=== PATIENT | female | born 1985 | race Caucasian/White ===

== ENCOUNTER 2016-12-22 19:57 | Emergency (ER) | payer OTHER ==
--- NOTE | 2016-12-22 20:49 | RAD ---
HISTORY: Headache, dizziness, nausea COMPARISONS: March 21, 2016 TECHNIQUE: Multiple contiguous axial CT scans were obtained of the head without intravenous contrast. FINDINGS: HEMORRHAGE/INFARCT: There is no hemorrhage or acute infarct. MASSES/SHIFT: There is no mass or shift. EXTRA-AXIAL SPACES: There are no extra-axial fluid collections. SULCI AND VENTRICLES: The sulci and ventricles are normal in size and position for the patient's stated age. CEREBRUM: There are no focal parenchymal abnormalities. BRAINSTEM: There are no focal parenchymal abnormalities. CEREBELLUM: There are no focal parenchymal abnormalities. VESSELS: The vessels are grossly normal. PARANASAL SINUSES: The paranasal sinuses are clear. ORBITS: The orbits are unremarkable. BONES AND SOFT TISSUE: No bone or soft tissue abnormalities are noted. OTHER: None IMPRESSION: NO ACUTE INTRACRANIAL PATHOLOGY.
--- NOTE | 2016-12-22 21:04 | ED ---
Nash Conrad Claudia, scribed for Dick Arias MD on 12/22/16 at 2020 . Headache - HPI Summary HPI Summary: 31 year old female presents to the ED with SKY and neck pain. Pt denies any cough , ear ache, vision changes, diplopia congestion but admits to 1 bout of fever earlier tonight of 101.3F. Pt notes onset of Sx today. She describes the SKY as a left sided SKY pressure with pressure behind her left eye. She also notes pain in the back of her neck as she rotates her head to the right. Pt took 750mg of Naproxen at 1600. Pt called Dr. Yoo PCP office and talked to Dr. López whom recommended she come to the ED. PMHx of Fibromyalgia - History Of Current Complaint Chief Complaint: EDGeneral Stated Complaint: HEADACHE,NAUSEA,NECK PAIN Time Seen by Provider: 12/22/16 20:11 Hx Obtained From: Patient Hx Last Menstrual Period: 2 wks ago Onset/Duration: Sudden Onset, Started days ago - today Timing: Constant Character: Pressure Location of Headache: Other: - left sided Associated Signs And Symptoms: Neck Pain - with rotation - Allergies/Home Medications Allergies/Adverse Reactions: Allergies Allergy/AdvReac Type Severity Reaction Status Date / Time Adhesive Tape Allergy BURNED SKIN Verified 05/05/16 20:54 PMH/Surg Hx/FS Hx/Imm Hx Previously Healthy: Yes Endocrine/Hematology History: Reports: Hx Thyroid Disease - HASHIMOTOS Denies: Hx Diabetes Cardiovascular History: Denies: Hx Hypertension, Hx Pacemaker/ICD GI History: Reports: Other GI Disorders - HX OF CONSTIPATION History: Denies: Hx Renal Disease Sensory History: Denies: Hx Contacts or Glasses, Hx Hearing Aid Opthamlomology History: Denies: Hx Contacts or Glasses Neurological History: Reports: Hx Headaches Denies: Other Neuro Impairments/Disorders Psychiatric History: Reports: Hx Anxiety, Hx Panic Disorder - ANXIETY - Surgical History Surgery Procedure, Year, and Place: LUMPECTOMY LEFT BREAST 02/05/16. LEEP 12/01 Infectious Disease History: No Infectious Disease History: Denies: Traveled Outside the [place] in Last 30 Days - Family History Known Family History: Positive: None Negative: Cardiac Disease, Blood Disorder Family History: R & n/C - Social History Occupation: Employed Part-time Lives: With Family Alcohol Use: None Alcohol Amount: 1 BOTTLE WINE/WEEK Hx Substance Use: No Substance Use Type: Reports: None Hx Tobacco Use: No Smoking Status (MU): Never Smoked Tobacco Review of Systems Negative: Fever, Chills Eyes: Negative Negative: Diplopia ENT: Negative Negative: Ear Ache Cardiovascular: Negative Respiratory: Negative Negative: Cough Gastrointestinal: Negative Genitourinary: Negative Positive: Other - pain on left side of neck whenpt moves it Skin: Negative Positive: Headache - pressure, left sided Psychological: Normal All Other Systems Reviewed And Are Negative: Yes Physical Exam Triage Information Reviewed: Yes Vital Signs On Initial Exam: Initial Vitals Temp Pulse Resp BP Pulse Ox 98.1 F 103 16 127/84 100 12/22/16 19:59 12/22/16 19:59 12/22/16 19:59 12/22/16 19:59 12/22/16 19:59 Vital Signs Reviewed: Yes Appearance: Positive: Well-Appearing, No Pain Distress - no acute distress, non toxic Skin: Positive: Warm, Skin Color Reflects Adequate Perfusion, Dry Head/Face: Positive: Normal Head/Face Inspection Eyes: Positive: Normal ENT: Positive: Other - post pharyngeal streaking. Negative: Tonsillar swelling - no tonsillar hypertrophy, Tonsillar exudate Neck: Positive: Supple, Nontender, No Lymphadenopathy, Other: - reproducible right trapezius pain Respiratory/Lung Sounds: Positive: Clear to Auscultation, Breath Sounds Present Cardiovascular: Positive: RRR Abdomen Description: Positive: Nontender, Soft Musculoskeletal: Positive: Normal, Strength/ROM Intact Neurological: Positive: Normal, Sensory/Motor Intact Psychiatric: Positive: Normal, Affect/Mood Appropriate Diagnostics - Vital Signs Vital Signs Temp Pulse Resp BP Pulse Ox 12/22/16 19:59 98.1 F 103 16 127/84 100 - Laboratory Lab Statement: Any lab studies that have been ordered have been reviewed, and results considered in the medical decision making process. - CT BRAIN CT CT Interpretation: No Acute Changes - NO ACUTE INTRACRANIAL PATHOLOGY CT Interpretation Completed By: Radiologist Re-Evaluation - Re-Evaluation 1 Re-Evaluation Time: 20:58 Change: Improved Comment: CT BRAIN results were discussed with the pt. Pt is agreeable with plan to be d/c home and follow-up appt with neurologist/PCP. Headache Course/Dx - Diagnoses Differential Diagnosis/HQI/PQRI: Migraine, Sinus Headache, Subarachnoid Hemorrhage, Tension Headache, Other - Primary concern for muscular headache. I cannot account for the fever, but she is without infectious complaints, signs of meningoencephalitis or ICH. Not immunocompromised and with soft supple neck. Neurology FU. Provider Diagnoses: Headache - Physician Notifications Discussed Care Of Patient With: Discussed care of pt with Dr. Diaz. Time Discussed With Above Provider: 20:33 Discharge - Discharge Plan Condition: Stable Disposition: HOME Patient Education Materials: Neck Pain (ED) Referrals: Heriberto Yoo MD [Primary Care Provider] - As Soon As Possible Carmen Watts MD [Medical Doctor] - As Soon As Possible The documentation as recorded by the Nash bae Claudia accurately reflects the service I personally performed and the decisions made by me, Dick Arias MD.
[2016-12-22 21:30] VITALS: BP 122/84
== END 2016-12-22 21:32 | disposition home or self-care (01) ==
LOC: ED 19:57
DX: R51 Headache (principal); M54.2 Cervicalgia
CPT/HCPCS: 70450; 99283

== ENCOUNTER 2017-04-27 19:29 | Emergency (ER) | payer SELFPAY ==
--- NOTE | 2017-04-27 20:58 | RAD ---
HISTORY: Right foot swelling COMPARISONS: July 24, 2006 VIEWS: 3, Frontal, lateral, and oblique views of the right foot FINDINGS: BONE DENSITY: Normal. BONES: There is no displaced fracture. JOINTS: There is no arthropathy. ALIGNMENT: There is no dislocation. SOFT TISSUES: Unremarkable. OTHER FINDINGS: None. IMPRESSION: NO ACUTE OSSEOUS INJURY. IF SYMPTOMS PERSIST, RECOMMEND REPEAT IMAGING.
--- NOTE | 2017-04-27 21:43 | ED ---
Lower Extremity - HPI Summary HPI Summary: 32F presents with right ankle swelling and pain into the calf today. She has an unknown rheumatologic problem and states that this pain is different than her normal pain. She admits to tingling up to her calf. She denies any injury. She denies any rash or fever. She is on control. She states she did have some shortness of breath when she was walking today but that has resolved. She denies any palpitations. She states she has had many rheumatologic episodes in the past and none of her pain has every felt like this in the past. She does not know her family history. She does not smoke. She denies any chest pain. - History of Current Complaint Chief Complaint: EDExtremityLower Stated Complaint: SWELING IN RT LEG/SOB Time Seen by Provider: 04/27/17 20:24 Hx Last Menstrual Period: 2 wks ago Pain Intensity: 7 - Allergies/Home Medications Allergies/Adverse Reactions: Allergies Allergy/AdvReac Type Severity Reaction Status Date / Time Adhesive Tape Allergy BURNED SKIN Verified 05/05/16 20:54 PMH/Surg Hx/FS Hx/Imm Hx Endocrine/Hematology History: Reports: Hx Thyroid Disease - HASHIMOTOS Denies: Hx Diabetes Cardiovascular History: Denies: Hx Hypertension, Hx Pacemaker/ICD GI History: Reports: Other GI Disorders - HX OF CONSTIPATION History: Denies: Hx Renal Disease Musculoskeletal History: Reports: Hx Rheumatoid Arthritis Sensory History: Denies: Hx Contacts or Glasses, Hx Hearing Aid Opthamlomology History: Denies: Hx Contacts or Glasses Neurological History: Reports: Hx Headaches Denies: Other Neuro Impairments/Disorders Psychiatric History: Reports: Hx Anxiety, Hx Panic Disorder - ANXIETY - Surgical History Surgery Procedure, Year, and Place: LUMPECTOMY LEFT BREAST 02/05/16. LEEP 12/01 Infectious Disease History: No Infectious Disease History: Denies: Traveled Outside the [place] in Last 30 Days - Family History Known Family History: Positive: None Negative: Cardiac Disease, Blood Disorder Family History: R & n/C - Social History Alcohol Use: None Alcohol Amount: 1 BOTTLE WINE/WEEK Hx Substance Use: No Substance Use Type: Reports: None Hx Tobacco Use: No Smoking Status (MU): Never Smoked Tobacco Review of Systems Negative: Fever Negative: Chest Pain Negative: Shortness Of Breath Positive: Edema - right ankle All Other Systems Reviewed And Are Negative: Yes Physical Exam Triage Information Reviewed: Yes Vital Signs On Initial Exam: Initial Vitals Temp Pulse Resp BP Pulse Ox 99 F 82 18 130/90 100 04/27/17 19:31 04/27/17 19:31 04/27/17 19:31 04/27/17 19:31 04/27/17 19:31 Vital Signs Reviewed: Yes Appearance: Positive: Well-Appearing Skin: Positive: Warm, Dry, Other - no rash Head/Face: Positive: Normal Head/Face Inspection Eyes: Positive: Normal, Conjunctiva Clear Respiratory/Lung Sounds: Positive: Clear to Auscultation, Breath Sounds Present Cardiovascular: Positive: Normal, RRR Musculoskeletal: Positive: Strength/ROM Intact - ankle right, Carie Sign Right - pos, Other - good pulses, tender to palpation of calf, sensation grossly intact, mild edema to ankle Diagnostics - Vital Signs Vital Signs Temp Pulse Resp BP Pulse Ox 04/27/17 20:16 98.8 F 88 16 121/68 100 04/27/17 19:31 99 F 82 18 130/90 100 - Laboratory Result Diagrams: 04/27/17 21:45 04/27/17 21:45 Lab Statement: Any lab studies that have been ordered have been reviewed, and results considered in the medical decision making process. - Radiology ankle Xray Interpretation: No Acute Changes Radiology Interpretation Completed By: Radiologist - Ultrasound No standard instances Ultrasound Interpretation: No Acute Changes - IMPRESSION: NO RIGHT LOWER EXTREMITY DEEP VEIN THROMBOSIS Ultrasound Interpretation Completed By: Radiologist Lower Extremity Course/Dx - Course Course Of Treatment: 32F presents with right ankle edema. on exam mild edema present. no sign of septic or gout joint. xray ankle normal. no trauma to area. pos carie. u/s leg normal. do not suspect PE due to stable vitals. labs normal CRP, WBC. told do not have reason for edema but rule out anything life threatening so should follow up with primary. patient understands and agrees with plan - Diagnoses Provider Diagnoses: Right ankle pain Discharge - Discharge Plan Condition: Good Disposition: HOME Referrals: Heriberto Yoo MD [Primary Care Provider] - Additional Instructions: Take tyenlol every 6 hours Follow up with primary within 5 days Return to ED if develop any new or worsening symptoms
[2017-04-27 21:54] LABS: Hematocrit 37 % (35-47); Hemoglobin 12.4 g/dl (12.0-16.0); Mean Corpuscular HGB Conc 33 g/dl (31-36); Mean Corpuscular Hemoglobin 29 pg (27-31); Mean Corpuscular Volume 87 fL (80-97); Mean Platelet Volume 10 um3 (7.4-10.4); Red Blood Count 4.28 10^6/ul (4.0-5.4); Red Cell Distribution Width 13 % (10.5-15); White Blood Count 6.2 10^3/ul (3.5-10.8)
[2017-04-27 22:08] LABS: ALT 16 U/L (7-52); AST 22 U/L (13-39); Alkaline Phosphatase 48 U/L (34-104); Anion Gap 3 mmol/L (2-11); BUN/Creatinine Ratio 16.1 (8-20); Blood Urea Nitrogen 10 mg/dL (6-24); C Reactive Protein < 1.00 mg/L (< 5.00); CO2 Carbon Dioxide 27 mmol/L (22-32); Calcium 9.2 mg/dL (8.6-10.3); Chloride 104 mmol/L (101-111); EGFR African American 145.4 (>60); Globulin 2.8 g/dL (2-4); Glucose 91 mg/dL (70-100); Potassium 3.6 mmol/L (3.5-5.0); Sodium 134 mmol/L (133-145); Total Protein 6.8 g/dL (6.4-8.9)
--- NOTE | 2017-04-27 22:18 | RAD ---
HISTORY: Right foot and calf pain COMPARISONS: None relevant TECHNIQUE: Multiple transverse and longitudinal ultrasound images were obtained of the right lower extremity from the level of the common femoral vein inferiorly through to the infrapopliteal veins using grayscale, color Doppler, and spectral Doppler imaging with and without compression and with augmentation. Comparison images were obtained of the contralateral common femoral vein. FINDINGS: VEINS: The venous system of the right lower extremity is compressible throughout its course, with normal flow on color Doppler imaging and normal response to augmentation on spectral Doppler imaging. SOFT TISSUES: Unremarkable. OTHER FINDINGS: None. IMPRESSION: NO RIGHT LOWER EXTREMITY DEEP VEIN THROMBOSIS
[2017-04-27 22:37] VITALS: BP 119/83
[2017-04-27 22:56] LABS: Erythrocyte Sed Rate 10 mm/Hr (0-14)
== END 2017-04-27 22:36 | disposition home or self-care (01) ==
LOC: ED 19:29
DX: M25.571 Pain in right ankle and joints of right foot (principal); M79.661 Pain in right lower leg; E06.3 Autoimmune thyroiditis; M06.9 Rheumatoid arthritis, unspecified; F41.0 Panic disorder [episodic paroxysmal anxiety]
CPT/HCPCS: 36415; 80053; 85025; 85652; 86140; 99282

== ENCOUNTER 2017-10-06 22:02 | Emergency (ER) | payer OTHER ==
[2017-10-06] MEDS ORDERED: Ondansetron INJ* 2 MG/ML VIAL IV ONE (23:31)
[2017-10-06] MEDS ORDERED: NS 0.9% 1000 ML* 1,000 ML IV ONE (23:31)
[2017-10-06] MEDS ORDERED: Ketorolac INJ* 30 MG/ML 1 ML VIAL IV PUSH ONE (23:31)
--- NOTE | 2017-10-06 23:49 | ED ---
GI/ HPI - HPI Summary HPI Summary: 32F presents with nausea, vomiting today. She states that started with n/v this morning. She then developed a dry cough, sore throat, generalized body aches especially in lower back. She has generalized abdominal pain. She admits to looser stools. She denies any SOB or chest pain. She states she feels lightheaded and almost passed out. She denies every having this symptoms. She denies any dysuria, hematuria, flank pain. She denies any iv drug use. She denies any rash. She denies any loss of bowel or bladder or saddle anaesthesia. She denies any previous abdominal surgeries. She denies any one else being sick. She denies eating anything different. - History of Current Complaint Chief Complaint: EDNauseaVomitDiarrh Time Seen by Provider: 10/06/17 23:24 Stated Complaint: VOMITING,LIGHTHEADED Hx Last Menstrual Period: 2 wks ago Pain Intensity: 8 - Allergy/Home Medications Allergies/Adverse Reactions: Allergies Allergy/AdvReac Type Severity Reaction Status Date / Time Adhesive Tape Allergy BURNED SKIN Verified 10/06/17 22:08 PMH/Surg Hx/FS Hx/Imm Hx Endocrine/Hematology History: Reports: Hx Thyroid Disease - HASHIMOTOS Denies: Hx Diabetes Cardiovascular History: Denies: Hx Hypertension, Hx Pacemaker/ICD GI History: Reports: Other GI Disorders - HX OF CONSTIPATION History: Denies: Hx Renal Disease Musculoskeletal History: Reports: Hx Rheumatoid Arthritis Sensory History: Denies: Hx Contacts or Glasses, Hx Hearing Aid Opthamlomology History: Denies: Hx Contacts or Glasses Neurological History: Reports: Hx Headaches Denies: Other Neuro Impairments/Disorders Psychiatric History: Reports: Hx Anxiety, Hx Panic Disorder - ANXIETY - Surgical History Surgery Procedure, Year, and Place: LUMPECTOMY LEFT BREAST 02/05/16. LEEP 12/01 Infectious Disease History: No Infectious Disease History: Denies: Traveled Outside the [place] in Last 30 Days - Family History Known Family History: Positive: None Negative: Cardiac Disease, Blood Disorder Family History: R & n/C - Social History Alcohol Use: None Alcohol Amount: 1 BOTTLE WINE/WEEK Hx Substance Use: No Substance Use Type: Reports: None Hx Tobacco Use: No Smoking Status (MU): Never Smoked Tobacco Review of Systems Positive: Chills. Negative: Fever Positive: Ear Ache Positive: Cough Positive: Abdominal Pain, Vomiting, Nausea All Other Systems Reviewed And Are Negative: Yes Physical Exam Triage Information Reviewed: Yes Vital Signs On Initial Exam: Initial Vitals Temp Pulse Resp BP Pulse Ox 97.7 F 107 16 108/72 100 10/06/17 22:05 10/06/17 22:05 10/06/17 22:05 10/06/17 22:05 10/06/17 22:05 Vital Signs Reviewed: Yes Appearance: Positive: Well-Appearing Skin: Positive: Warm, Dry Head/Face: Positive: Normal Head/Face Inspection Eyes: Positive: Normal, EOMI, RONEN, Conjunctiva Clear ENT: Positive: Normal ENT inspection, Pharynx normal, Nasal congestion, TMs normal Neck: Positive: Supple, Nontender, No Lymphadenopathy Respiratory/Lung Sounds: Positive: Clear to Auscultation, Breath Sounds Present Cardiovascular: Positive: Normal, RRR Abdomen Description: Positive: Soft, Other: - diffuse tenderness exam. Negative : CVA Tenderness (R), CVA Tenderness (L) Bowel Sounds: Positive: Present Musculoskeletal: Positive: Other - tenderness lower back, no midline tenderness Neurological: Positive: Normal Psychiatric: Positive: Normal Diagnostics - Vital Signs Vital Signs Temp Pulse Resp BP Pulse Ox 10/06/17 22:05 97.7 F 107 16 108/72 100 - Laboratory Result Diagrams: 10/06/17 23:55 10/06/17 23:55 Lab Statement: Any lab studies that have been ordered have been reviewed, and results considered in the medical decision making process. - Ultrasound No standard instances Ultrasound Interpretation: No Acute Changes - mild hepatomegaly Ultrasound Interpretation Completed By: Radiologist Re-Evaluation - Re-Evaluation First Eval Re-Evaluation Time: 02:04 Change: Worse Comment: feeling better with toradol, zofran and fluids GIGU Course/Dx - Course Course Of Treatment: 32F presents with nausea, vomiting today. She states that started with n/v this morning. She then developed a dry cough, sore throat, generalized body aches especially in lower back. She has generalized abdominal pain. She admits to looser stools. She denies any SOB or chest pain. She states she feels lightheaded and almost passed out. She denies every having this symptoms. She denies any dysuria, hematuria, flank pain. She denies any iv drug use. She denies any rash. She denies any loss of bowel or bladder or saddle anaesthesia. She denies any previous abdominal surgeries. She denies any one else being sick. She denies eating anything different. on exam lungs CTA. sinus congestion presents. abdomen diffuse tenderness. labs wbc 6.3. electrolytes normal. gallbladder u/s normal. will treat vomiting with zofran. likely viral illness. patient understand and agrees with plan. - Diagnoses Differential Diagnoses - Female: Gastroenteritis (Viral), Gastroenteritis ( Bacterial), Urinary Tract Infection, Other - upper resp infection Provider Diagnoses: Abdominal pain, Nausea and vomiting, Lightheaded Discharge - Discharge Plan Condition: Good Disposition: HOME Prescriptions: Ondansetron ODT TAB* [Zofran 4 MG Odt TAB*] 4 mg PO Q6H PRN #20 tab.odt PRN Reason: Nausea Patient Education Materials: Acute Nausea and Vomiting (ED) Forms: *School Release Referrals: Heriberto Yoo MD [Primary Care Provider] - Additional Instructions: Can take Zofran every 6 hours as needed for nausea Drink small amounts of fluid as tolerated When able to eat follow BRAT diet: Bananas, rice, applesauce, toast Take ibuprofen or Tylenol for pain as needed every 6 hours Follow up with primary within 5 days Return to ED if develop any new or worsening symptoms
[2017-10-07] MEDS ORDERED: NS 0.9% 1000 ML* 1,000 ML IV ONE (00:05)
[2017-10-07 00:08] LABS: Hematocrit 37 % (35-47); Hemoglobin 12.6 g/dl (12.0-16.0); Mean Corpuscular HGB Conc 34 g/dl (31-36); Mean Corpuscular Hemoglobin 30 pg (27-31); Mean Corpuscular Volume 87 fL (80-97); Mean Platelet Volume 8 um3 (7.4-10.4); Red Blood Count 4.28 10^6/ul (4.0-5.4); Red Cell Distribution Width 12 % (10.5-15); White Blood Count 6.3 10^3/ul (3.5-10.8)
[2017-10-07 00:23] LABS: ALT 14 U/L (7-52); AST 17 U/L (13-39); Albumin 3.8 g/dL (3.2-5.2); Alkaline Phosphatase 45 U/L (34-104); Anion Gap 6 mmol/L (2-11); BUN/Creatinine Ratio 24.2 (8-20); Blood Urea Nitrogen 15 mg/dL (6-24); CO2 Carbon Dioxide 25 mmol/L (22-32); Calcium 9.2 mg/dL (8.6-10.3); Chloride 102 mmol/L (101-111); EGFR African American 145.4 (>60); Globulin 2.9 g/dL (2-4); Glucose 101 mg/dL (70-100); Lipase 25 U/L (11.0-82.0); Magnesium 1.8 mg/dL (1.9-2.7); Potassium 3.8 mmol/L (3.5-5.0); Sodium 133 mmol/L (133-145); Total Protein 6.7 g/dL (6.4-8.9)
[2017-10-07 01:11] LABS: C Reactive Protein 18.81 mg/L (< 5.00)
[2017-10-07] MEDS ORDERED: Ondansetron ODT TAB* 4 MG PO ONE (02:02)
[2017-10-07 03:13] VITALS: BP 106/70
[2017-10-07 07:06] LABS: Urine Bacteria Absent (Absent); Urine Bilirubin Negative (Negative); Urine Glucose Negative (Negative); Urine Nitrite Negative (Negative)
--- NOTE | 2017-10-07 08:30 | RAD ---
INDICATION: Epigastric pain. Vomiting. COMPARISON: None TECHNIQUE: Longitudinal and transverse scans of the right upper quadrant were obtained. Doppler interrogation of the hepatic and portal venous system was performed. FINDINGS: Liver: The liver is slightly enlarged. The echogenicity is normal. There are no focal masses. The liver measures 18.5 cm in cephalocaudal dimension. Vessels: There is normal hepatic and portal venous flow. Bile ducts: There is no evidence of intrahepatic or extrahepatic ductal dilatation. The common duct measures 0.3 cm. Gallbladder: The sonographic appearance of the gallbladder is normal. There is no evidence of cholelithiasis, thickening of the gallbladder wall, or pericholecystic fluid. Pancreas: The visualized pancreas appears normal Right kidney: The right kidney is normal in size and echogenicity. There are no masses or calculi. There is no evidence of hydronephrosis. The right kidney measures 10.3 x 4.6 x 5.2 cm. IVC and aorta: The aorta and superior vena cava appear normal. Fluid: There is no ascites. Other: None. IMPRESSION: BORDERLINE ENLARGED LIVER, OTHERWISE NEGATIVE.
== END 2017-10-07 02:40 | disposition home or self-care (01) ==
LOC: ED 22:02
DX: R11.2 Nausea with vomiting, unspecified (principal); R42 Dizziness and giddiness; R10.9 Unspecified abdominal pain; F41.9 Anxiety disorder, unspecified
CPT/HCPCS: 36415; 76705; 80053; 81003; 81015; 83690; 83735; 84702; 85025; 86140; 87502; 96360; 96374; 96375; 99284; J1885; J2405

== ENCOUNTER 2018-01-27 18:04 | Emergency (ER) | payer OTHER ==
--- OUTSIDE RECORDS SUMMARY | 2018-01-27 18:13 | XMS REPORT ---
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 Active Onset: 02/15/2015 Constipation Bogdan Marquez M.D. Active Onset: 04/10/2016 Migraine without aura Carmen Watts M.D. Active Onset: 04/10/2016 Pain in cervical spine Carmen Watts M.D. Active Onset: 01/11/2018 Displacement of cervical Delmar Staples M.D. Active intervertebral disc Family History Date Family Member(s) Problem(s) Comments General Diabetes General Heart Disease General Cancer General Thyroid Disease Social History Type Date Description Comments Marital Status Single Lives With Boyfriend Lives With Sons Occupation [employer] Use Drinks Alcoholic Beverages Occasionally Smoking Patient has never smoked Recreational Drug Use Denies Drug Use Daily Caffeine Consumes on average 2 cups of regular coffee per day Exercise Type/Frequency Plays sports 4 times a week Allergies, Adverse Reactions, Alerts Date Description Reaction Status Severity Comments 04/10/2016 Prednisone unknown active 07/01/2017 Azithromycin active mild rash 03/28/2014 NKDA inactive Medications Medication Date Status Form Strength Qnty SIG Indications Ordering Provider Methylprednisolone 01/11 Active TBPK 4mg 1pack take as M50.222 dougie Staples M.D. Iron Slow Release 12/04 Active Tablets 143(45Fe) 90tab take one ER mg s capsule/tab Maribel, let daily M.D. by mouth Nortriptyline HCL 11/25 Active Capsules 10mg 90cap Take 1 To 3 G43.019 Carmen M. s Capsules By Stackman, Mouth Every M.D. Night as Needed Sumatriptan 04/10 Active Tablets 50mg 12tab take 1 G43.019 Carmen M. s tablet by Stackman, mouth as M.D. needed for migraine headache, may repeat after 2 hours. not to exceed 2 tablets a day Lorazepam Active Tablets 0.5mg prn Unknown /0000 Lve-Ee-Spxsyu Active Tablets 0.18/0.21 1 by mouth Unknown /0000 5/0.25 every day mg-25 mcg Levothyroxine Active Tablets 150mcg 1 by mouth Unknown Sodium /0000 every day Meloxicam 12/01 Hx Tablets 7.5mg 42tab take one Z79.1 s tab twice Maribel, - daily as M.D. 12/23 needed for pain, avoid other nsaids B12 Fast Dissolve 07/14 Hx Tablets 5000mcg 90tab sl daily Dispers s Maribel, - M.D. 12/23 Lidocaine 07/14 Hx Patches 5% 30uni apply 1 or M54.2 ts 2 patches Maribel, - 12 hours on M.D. 12/23 and hours off Prednisone 07/13 Hx Tablets 10mg 30tab take 4 tabs s by mouth Maribel, - daily for 2 M.D. 07/13 days then tabs daily for 2 days then 2 tabs for 2 days then 1 tab for 2 days then d/c Diclofenac Sodium 07/13 Hx Tablets 75mg 30tab take one s capsule/tab Maribel, - let by M.D. 12/01 mouth twice daily as needed for pain, avoid other nsaids Augmentin 07/01 Hx Tablets 875-125mg 20tab take one by s mouth twice Maribel, - daily M.D. 07/13 Zonisamide 04/10 Hx Capsules 25mg 120ca 1-4 caps by G43.019 Carmen Choco ps mouth every Stack, - night as M.D. 11/24 Meclizine HCL 03/02 Hx Tablets 12.5mg 30tab 1 tablet 780.4 s twice a Marquez, - day, as M.D. 04/09 Fleet Enema 02/12 Hx Enema 7- 266ml Apply 1 564.09 8ML time and Marquez, - repet in 1 M.D. Docusate Sodium 02/12 Hx Capsules 100mg 60cap Take 1 564.09 s Capsule By Marquez, - Mouth Two M.D. 04/09 Times Daily as Needed For Constipatio n Vitamin D3 Hx Chewtabs 1000Unit 1 tab by Unknown / mouth daily - 07/17 Ortho Tri-Cyclen Hx Tablets 0.18/0.21 1 by mouth Unknown () / 5/0.25 every day - mg-35 mcg 04/09 Levothyroxine Hx Tablets 175mcg 30tab 1 by mouth Sodium s every day Marquez, - with empty M.D. 08/27 stomach, Dose changes from 150 to 175 mcg depending blood work. Linzess Hx Capsules 145mcg 2 caps Unknown /0000 every day. 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 Vital Signs Date Vital Result Comment 01/11/2018 Height 63 inches 5'3" Weight 138.00 lb Heart Rate 72 /min BP Systolic Sitting 124 mmHg BP Diastolic Sitting 80 mmHg Pain Level 4 BMI (Body Mass Index) 24.4 kg/m2 12/23/2017 Height 63 inches 5'3" Weight 138.00 lb Heart Rate 71 /min BP Systolic Sitting 118 mmHg BP Diastolic Sitting 66 mmHg Pain Level 4 BMI (Body Mass Index) 24.4 kg/m2 12/01/2017 Height 63 inches 5'3" Weight 138.00 lb Heart Rate 78 /min BP Systolic Sitting 110 mmHg BP Diastolic Sitting 68 mmHg Respiratory Rate 14 /min Pain Level 3 BMI (Body Mass Index) 24.4 kg/m2 08/27/2017 Height 63 inches 5'3" Weight 135.00 lb Heart Rate 72 /min BP Systolic Sitting 96 mmHg BP Diastolic Sitting 64 mmHg Respiratory Rate 14 /min Pain Level 4 BMI (Body Mass Index) 23.9 kg/m2 07/16/2017 Height 63 inches 5'3" Weight 135.00 lb Heart Rate 72 /min BP Systolic Sitting 102 mmHg BP Diastolic Sitting 64 mmHg Respiratory Rate 16 /min BMI (Body Mass Index) 23.9 kg/m2 07/14/2017 Height 63 inches 5'3" Weight 139.00 lb Heart Rate 80 /min BP Systolic Sitting 110 mmHg BP Diastolic Sitting 70 mmHg Respiratory Rate 14 /min Pain Level 6 BMI (Body Mass Index) 24.6 kg/m2 07/09/2017 Heart Rate 72 /min BP Systolic 108 mmHg BP Diastolic 68 mmHg Respiratory Rate 16 /min Body Temperature 97.2 F 07/01/2017 Height 63 inches 5'3" Weight 138.38 lb Heart Rate 80 /min BP Systolic Sitting 116 mmHg BP Diastolic Sitting 80 mmHg Respiratory Rate 14 /min Pain Level 7 BMI (Body Mass Index) 24.5 kg/m2 06/30/2017 Height 63 inches 5'3" Weight 140.00 lb Heart Rate 66 /min BP Systolic 120 mmHg BP Diastolic 70 mmHg Respiratory Rate 16 /min Body Temperature 98.7 F BMI (Body Mass Index) 24.8 kg/m2 03/19/2017 Height 63 inches 5'3" Weight 137.00 lb Heart Rate 88 /min BP Systolic Sitting 110 mmHg BP Diastolic Sitting 68 mmHg Respiratory Rate 17 /min BMI (Body Mass Index) 24.3 kg/m2 11/25/2016 Height 63 inches 5'3" Weight 138.00 lb Heart Rate 84 /min BP Systolic Sitting 112 mmHg BP Diastolic Sitting 72 mmHg Respiratory Rate 14 /min Pain Level 4 BMI (Body Mass Index) 24.4 kg/m2 04/10/2016 Height 63 inches 5'3" Weight 132.00 lb Heart Rate 80 /min BP Systolic Sitting 104 mmHg BP Diastolic Sitting 60 mmHg Respiratory Rate 14 /min BMI (Body Mass Index) 23.4 kg/m2 07/17/2015 Height 63 inches 5'3" Weight 122.25 lb Heart Rate 78 /min Respiratory Rate 14 /min Body Temperature 97.6 F tympanic O2 % BldC Oximetry 99 % room air BMI (Body Mass Index) 21.7 kg/m2 07/17/2015 Height 63 inches 5'3" 03/02/2015 Height 63 inches 5'3" Weight 134.31 lb Heart Rate 76 /min BP Systolic Sitting 110 mmHg BP Diastolic Sitting 70 mmHg Body Temperature 97.6 F O2 % BldC Oximetry 98 % BMI (Body Mass Index) 23.8 kg/m2 02/12/2015 Height 63 inches 5'3" Weight 135.00 lb Heart Rate 70 /min BP Systolic Sitting 110 mmHg BP Diastolic Sitting 60 mmHg Body Temperature 98.1 F O2 % BldC Oximetry 98 % BMI (Body Mass Index) 23.9 kg/m2 Results Test Date Test Result H/L Range Note Connective Tissue Panel 12/01/2017 Anti-Nuclear Antibody 0.7 U 1 Cyclic Citrullinated Peptide <15.6 U 2 Interpretation See Comment 3 Laboratory test finding 12/01/2017 Rheumatoid Factor <15 IU/mL <15 4 Erythrocyte Sed Rate 21 mm/Hr High 0-14 5 C Reactive Protein < 1.00 mg/L < 5.00 6 Comp Metabolic Panel 12/01/2017 Sodium 136 mmol/L 133-145 Potassium 3.8 mmol/L 3.5-5.0 Chloride 104 mmol/L 101-111 Co2 Carbon Dioxide 29 mmol/L 22-32 Anion Gap 3 mmol/L 2-11 Glucose 83 mg/dL 70-100 Blood Urea Nitrogen 10 mg/dL 6-24 Creatinine 0.68 mg/dL 0.51-0.95 BUN/Creatinine Ratio 14.7 8-20 Calcium 9.3 mg/dL 8.6-10.3 Total Protein 7.6 g/dL 6.4-8.9 Albumin 4.4 g/dL 3.2-5.2 Globulin 3.2 g/dL 2-4 Albumin/Globulin Ratio 1.4 1-3 Total Bilirubin 0.60 mg/dL 0.2-1.0 Alkaline Phosphatase 41 U/L 34-104 Alt 12 U/L 7-52 Ast 19 U/L 13-39 Egfr Non- 101.6 >60 Egfr 130.7 >60 7 Hepatitis Acute Panel 12/01/2017 Hepatitis C Antibody Nonreactive Nonreactive 8 Hepatitis A AB Igm Nonreactive Nonreactive 9 Hepatitis B Core AB Igm Nonreactive Nonreactive 10 Hepatitis B Surface Ag Nonreactive Nonreactive 11 Iron & Iron Binding Capacity 12/01/2017 Iron 67 g/dL 50-212 Unsaturated Iron Binding 455 g/dL Total Iron Binding Capacity 522 g/dL High 250-450 % Iron Saturation 13 % Low 15-55 Laboratory test finding 12/01/2017 Ferritin < 10.0 ng/mL Low 11-307 12 Smooth Muscle Antibody Negative Negative 13 Mitochondrial AB AMA M2 Igg <0.1 U 14 Vitamin B12 And Folate Serum 12/01/2017 Vitamin B12 351 pg/mL 180-914 15 Folic Acid (Folate) 14.74 ng/mL >3.99 16 CBC Auto Diff 12/01/2017 White Blood Count 6.2 10^3/uL 3.5-10.8 Red Blood Count 4.20 10^6/uL 4.0-5.4 Hemoglobin 12.0 g/dL 12.0-16.0 Hematocrit 36 % 35-47 Mean Corpuscular Volume 85 fL 80-97 Mean Corpuscular Hemoglobin 29 pg 27-31 Mean Corpuscular HGB Conc 33 g/dL 31-36 Red Cell Distribution Width 14 % 10.5-15 Platelet Count 218 10^3/uL 150-450 Mean Platelet Volume 9 um3 7.4-10.4 Abs Neutrophils 4.5 10^3/uL 1.5-7.7 Abs Lymphocytes 1.3 10^3/uL 1.0-4.8 Abs Monocytes 0.3 10^3/uL 0-0.8 Abs Eosinophils 0.1 10^3/uL 0-0.6 Abs Basophils 0 10^3/uL 0-0.2 Abs Nucleated RBC 0 10^3/uL Granulocyte % 73.4 % 38-83 Lymphocyte % 20.5 % Low 25-47 Monocyte % 4.5 % 1-9 Eosinophil % 0.9 % 0-6 Basophil % 0.7 % 0-2 Nucleated Red Blood Cells % 0 Laboratory test finding 12/01/2017 Magnesium 2.1 mg/dL 1.9-2.7 17 Basic Metabolic Panel 12/01/2017 Sodium 136 mmol/L 133-145 Potassium 3.8 mmol/L 3.5-5.0 Chloride 105 mmol/L 101-111 Co2 Carbon Dioxide 27 mmol/L 22-32 Anion Gap 4 mmol/L 2-11 Glucose 82 mg/dL 70-100 Blood Urea Nitrogen 10 mg/dL 6-24 Creatinine 0.69 mg/dL 0.51-0.95 BUN/Creatinine Ratio 14.5 8-20 Calcium 9.1 mg/dL 8.6-10.3 Egfr Non- 99.9 >60 Egfr 128.5 >60 18 Lipid Profile (Trig/Chol/HDL) 12/01/2017 Triglycerides 111 mg/dL 19 Cholesterol 201 mg/dL 20 HDL Cholesterol 58.0 mg/dL 21 LDL Cholesterol 121 mg/dL 22 Liver Function Panel 12/01/2017 Total Protein 7.1 g/dL 6.4-8.9 Albumin 4.1 g/dL 3.2-5.2 Globulin 3.0 g/dL 2-4 Albumin/Globulin Ratio 1.4 1-3 Total Bilirubin 0.60 mg/dL 0.2-1.0 Direct Bilirubin 0.10 mg/dL 0.03-0.18 Indirect Bilirubin 0.5 mg/dL 0.3-1.0 Alkaline Phosphatase 36 U/L 34-104 Alt 11 U/L 7-52 Ast 18 U/L 13-39 Laboratory test finding 12/01/2017 TSH (Thyroid Stim 9.26 mcIU/mL High 0.34-5.60 Horm) Free T4 (Free Thyroxine) 1.01 ng/dL 0.61-1.12 T3 Free 2.90 pg/mL 2.5-3.9 T3 Total 0.84 ng/mL Low 0.87-1.78 Laboratory test finding 07/18/2017 Erythrocyte Sed Rate 15 mm/Hr High 0- 14 23 C Reactive Protein 1.17 mg/L < 5.00 24 Laboratory test finding 07/02/2017 Magnesium 2.2 mg/dL 1.9-2.7 25 Creatine Kinase(CK) 74 U/L 10-223 26 C Reactive Protein 27.69 mg/L High < 5.00 27 Folic Acid (Folate) 10.55 ng/mL >3.99 28 Vitamin B12 249 pg/mL 180-914 29 Erythrocyte Sed Rate 30 mm/Hr High 0-14 30 Hla B27 07/02/2017 Hla B27 Negative 31 Hla B27 Interp See Comment 32 Immunoglobulins Serum Quant 07/02/2017 Immunoglobulin G 1440 mg/dL 767 - 1590 33 Immunoglobulin M 248 mg/dL 37 - 286 Immunoglobulin A 287 mg/dL 61 - 356 Laboratory test finding 07/02/2017 Angiotensin Converting 39 U/L 8 - 53 34 Enzyme Anca AB Ser If 07/02/2017 C-Anca Negative Negative P-Anca Negative Negative 35 Laboratory test 07/02/2017 Cyclic Citrullinated Pep <15.6 U 36 finding Igg Ehrlichia/Anaplasma 07/02/2017 Anaplasma phagocytophilum Negative Negative PCR Ehrlichia chaffeensis Negative Negative Ehrlichia ewingii/canis Negative Negative Ehrlichia muris-like Negative Negative 37 Laboratory test finding 07/02/2017 Rheumatoid Factor <15 IU/mL <15 38 Babesia Microti Abs (Igg,Igm) 07/02/2017 Babesia microti IgG <1:64 Babesia microti IgM <1:20 Babesia microti Interpretation See Comment 39 Celiac Hla DQ1/DQ2 07/02/2017 Hla-Dqa1 SEE BELOW 40 Hla-DQB1 SEE BELOW 41 Celiac Gene Pairs Present? No Celiac Gene Interpretation See Comment 42 Laboratory test 07/01/2017 Culture Throat SEE RESULT BELOW 43, 44 finding CBC Auto Diff 03/12/2017 White Blood Count 6.2 10^3/uL 3.5-10.8 Red Blood Count 4.69 10^6/uL 4.0-5.4 Hemoglobin 13.7 g/dL 12.0-16.0 Hematocrit 41 % 35-47 Mean Corpuscular Volume 87 fL 80-97 Mean Corpuscular Hemoglobin 29 pg 27-31 Mean Corpuscular HGB Conc 34 g/dL 31-36 Red Cell Distribution Width 13 % 10.5-15 Platelet Count 180 10^3/uL 150-450 Mean Platelet Volume 9 um3 7.4-10.4 Abs Neutrophils 3.4 10^3/uL 1.5-7.7 Abs Lymphocytes 2.1 10^3/uL 1.0-4.8 Abs Monocytes 0.6 10^3/uL 0-0.8 Abs Eosinophils 0 10^3/uL 0-0.6 Abs Basophils 0 10^3/uL 0-0.2 Abs Nucleated RBC 0 10^3/uL Granulocyte % 55.3 % 38-83 Lymphocyte % 33.8 % 25-47 Monocyte % 9.6 % High 1-9 Eosinophil % 0.7 % 0-6 Basophil % 0.6 % 0-2 Nucleated Red Blood Cells % 0 Comp Metabolic Panel 03/12/2017 Sodium 137 mmol/L 133-145 Potassium 4.3 mmol/L 3.5-5.0 Chloride 103 mmol/L 101-111 Co2 Carbon Dioxide 26 mmol/L 22-32 Anion Gap 8 mmol/L 2-11 Glucose 90 mg/dL 70-100 Blood Urea Nitrogen 10 mg/dL 6-24 Creatinine 0.69 mg/dL 0.51-0.95 BUN/Creatinine Ratio 14.5 8-20 Calcium 9.7 mg/dL 8.6-10.3 Total Protein 7.4 g/dL 6.4-8.9 Albumin 4.3 g/dL 3.2-5.2 Globulin 3.1 g/dL 2-4 Albumin/Globulin Ratio 1.4 1-3 Total Bilirubin 0.50 mg/dL 0.2-1.0 Alkaline Phosphatase 50 U/L 34-104 Alt 23 U/L 7-52 Ast 26 U/L 13-39 Egfr Non- 99.9 >60 Egfr 128.5 >60 45 Urinalysis Profile 03/12/2017 Urine Color Straw Urine Appearance Clear Urine Specific Dalton 1.003 Low 1.010-1.030 Urine pH 8.0 5-9 Urine Urobilinogen Negative Negative Urine Ketones Negative Negative Urine Protein Negative Negative Urine Leukocytes Negative Negative Urine Blood Negative Negative Urine Nitrite Negative Negative Urine Bilirubin Negative Negative Urine Glucose Negative Negative Urine Culture And 03/12/2017 Urine Culture SEE RESULT BELOW 46 Sensitivities Laboratory test finding 03/12/2017 Free T4 (Free 1.21 ng/dL High 0.61- 1.12 Thyroxine) CBC Auto Diff 12/01/2016 White Blood Count 5.1 10^3/uL 3.5-10.8 Red Blood Count 4.29 10^6/uL 4.0-5.4 Hemoglobin 12.7 g/dL 12.0-16.0 Hematocrit 38 % 35-47 Mean Corpuscular Volume 88 fL 80-97 Mean Corpuscular Hemoglobin 30 pg 27-31 Mean Corpuscular HGB Conc 34 g/dL 31-36 Red Cell Distribution Width 13 % 10.5-15 Platelet Count 173 10^3/uL 150-450 Mean Platelet Volume 10 um3 7.4-10.4 Abs Neutrophils 3.2 10^3/uL 1.5-7.7 Abs Lymphocytes 1.5 10^3/uL 1.0-4.8 Abs Monocytes 0.3 10^3/uL 0-0.8 Abs Eosinophils 0.1 10^3/uL 0-0.6 Abs Basophils 0 10^3/uL 0-0.2 Abs Nucleated RBC 0 10^3/uL Granulocyte % 63.3 % 38-83 Lymphocyte % 29.5 % 25-47 Monocyte % 5.6 % 1-9 Eosinophil % 1.1 % 0-6 Basophil % 0.5 % 0-2 Nucleated Red Blood Cells % 0 Comp Metabolic Panel 12/01/2016 Sodium 135 mmol/L 133-145 Potassium 3.7 mmol/L 3.5-5.0 Chloride 102 mmol/L 101-111 Co2 Carbon Dioxide 31 mmol/L 22-32 Anion Gap 2 mmol/L 2-11 Glucose 67 mg/dL Low 70-100 Blood Urea Nitrogen 11 mg/dL 6-24 Creatinine 0.72 mg/dL 0.51-0.95 BUN/Creatinine Ratio 15.3 8-20 Calcium 9.3 mg/dL 8.6-10.3 Total Protein 6.7 g/dL 6.4-8.9 Albumin 3.8 g/dL 3.2-5.2 Globulin 2.9 g/dL 2-4 Albumin/Globulin Ratio 1.3 1-3 Total Bilirubin 0.40 mg/dL 0.2-1.0 Alkaline Phosphatase 43 U/L 34-104 Alt 11 U/L 7-52 Ast 17 U/L 13-39 Egfr Non- 95.8 >60 Egfr 123.2 >60 47 Connective Tissue Panel 12/01/2016 Anti-Nuclear Antibody 0.6 U 48 Cyclic Citrullinated Peptide <15.6 U 49 Interpretation See Comment 50 Laboratory test finding 12/01/2016 C Reactive Protein 1.30 mg/L < 5.00 51 Lyme Disease Serology Negative Negative 52 Laboratory test finding 07/25/2015 Cortisol 3.70 ?g/dL 53 T3 Free 2.80 pg/mL 2.5-3.9 Free T4 (Free Thyroxine) 1.26 ng/mL High 0.61-1.12 T3 Total 0.93 ng/mL 0.87-1.78 TSH (Thyroid Stim Horm) 0.11 ?IU/mL Low 0.34-5.60 Lyme Disease Serology Negative Negative 54 Adrenal 21 Hydroxylase <1 U/mL <1 55 Laboratory test finding 07/17/2015 Vitamin B12 261 pg/mL 180-914 56 Vitamin D Total 25(Oh) 36.8 ng/mL 30-50 Comp Metabolic Panel 07/17/2015 Sodium 136 mmol/L 133-145 Potassium 3.8 mmol/L 3.5-5.0 Chloride 101 mmol/L 101-111 Co2 Carbon Dioxide 29 mmol/L 22-32 Anion Gap 6 mmol/L 2-11 Glucose 88 mg/dL 70-100 Blood Urea Nitrogen 11 mg/dL 6-24 Creatinine 0.58 mg/dL 0.51-0.95 BUN/Creatinine Ratio 19.0 8-20 Calcium 9.4 mg/dL 8.6-10.3 Total Protein 7.3 g/dL 6.4-8.9 Albumin 4.5 g/dL 3.2-5.2 Globulin 2.8 g/dL 2-4 Albumin/Globulin Ratio 1.6 1-3 Total Bilirubin 0.50 mg/dL 0.2-1.0 Alkaline Phosphatase 35 U/L 34-104 Alt 19 U/L 7-52 Ast 24 U/L 13-39 Egfr Non- 123.8 >60 Egfr 159.2 >60 57 CBC Auto Diff 07/17/2015 White Blood Count 5.7 10^3/uL 4.8-10.8 Red Blood Count 4.40 10^6/uL 4.0-5.4 Hemoglobin 13.8 g/dL 12.0-16.0 Hematocrit 41 % 35-47 Mean Corpuscular Volume 93 fL 80-97 Mean Corpuscular Hemoglobin 31 pg 27-31 Mean Corpuscular HGB Conc 34 g/dL 31-36 Red Cell Distribution Width 13 % 10.5-15 Platelet Count 192 10^3/uL 150-450 Mean Platelet Volume 9 um3 7.4-10.4 Abs Neutrophils 3.4 10^3/uL 1.5-7.7 Abs Lymphocytes 1.8 10^3/uL 1.0-4.8 Abs Monocytes 0.4 10^3/uL 0-0.8 Abs Eosinophils 0.1 10^3/uL 0-0.6 Abs Basophils 0 10^3/uL 0-0.2 Abs Nucleated RBC 0 10^3/uL Granulocyte % 60.0 % 38-83 Lymphocyte % 31.4 % 25-47 Monocyte % 6.9 % 1-9 Eosinophil % 1.1 % 0-6 Basophil % 0.6 % 0-2 Nucleated Red Blood Cells % 0 Laboratory test finding 07/17/2015 TSH (Thyroid Stim 0.04 ?IU/mL Low 0.34- 5.60 Horm) 1 REFERENCE VALUE <=1.0 (Negative) 2 REFERENCE VALUE <20.0 (Negative) 3 Tests for antibodies to dsDNA and JAVAN antigens are not performed automatically unless the JUANPALBO result is > or= 3.0 U. Studies performed at [facility] indicate that positive JUANPABLO results <3.0 U are rarely accompanied by positive second order tests. Test Performed by: [facility] [place] [address] 4 Test Performed by: [facility] [place] [address] 5 Please check labs today 6 Acute inflammation: >10.00 7 Because ethnic data is not always readily available, this report includes an eGFR for both -Americans and non- Americans. The National Kidney Disease Education Program (NKDEP) does not endorse the use of the MDRD equation for patients that are not between the ages of 18 and 70, are , have extremes of body size, muscle mass, or nutritional status, or are non- or non-. According to the National Kidney Foundation, irrespective of diagnosis, the stage of the disease is based on the level of kidney function: Stage Description GFR(mL/min/1.73 m(2)) 1 Kidney damage with normal or decreased GFR 90 2 Kidney damage with mild decrease in GFR 60-89 3 Moderate decrease in GFR 30-59 4 Severe decrease in GFR 15-29 5 Kidney failure <15 (or dialysis) 8 Please check labs today FASTING 9 Please check labs today FASTING 10 Please check labs today FASTING 11 Please check labs today FASTING 12 Please check labs today FASTING 13 ADDITIONAL INFORMATION This test was developed and its performance characteristics determined by [facility] in a manner consistent with CLIA requirements. This test has not been cleared or approved by the U.S. Food and Drug Administration. Test Performed by: [facility] [place] [address] 14 REFERENCE VALUE <0.1 (Negative) Test Performed by: [place] [address] 15 Normal Range 180 to 914 Indeterminate Range 145 to 180 Deficient Range <145 16 Please check labs today FASTING 17 Please check labs today FASTING 18 Because ethnic data is not always readily available, this report includes an eGFR for both -Americans and non- Americans. The National Kidney Disease Education Program (NKDEP) does not endorse the use of the MDRD equation for patients that are not between the ages of 18 and 70, are , have extremes of body size, muscle mass, or nutritional status, or are non- or non-. According to the National Kidney Foundation, irrespective of diagnosis, the stage of the disease is based on the level of kidney function: Stage Description GFR(mL/min/1.73 m(2)) 1 Kidney damage with normal or decreased GFR 90 2 Kidney damage with mild decrease in GFR 60-89 3 Moderate decrease in GFR 30-59 4 Severe decrease in GFR 15-29 5 Kidney failure <15 (or dialysis) 19 Desirable: <150 Borderline High: 150-199 High: 200-499 Very High: >500 20 Desirable: <200 Borderline High: 200-239 High: >239 21 Low: <40 Desirable: 40-60 High: >60 22 Desirable: <100 Near Optimal: 100-129 Borderline High: 130-159 High: 160-189 Very High: >189 23 Please check this week 24 Acute inflammation: >10.00 25 Please check labs this week 26 Please check labs this week 27 Acute inflammation: >10.00 28 Please check labs this week 29 Normal Range 180 to 914 Indeterminate Range 145 to 180 Deficient Range <145 30 Please check labs this week 31 REFERENCE VALUE Not Applicable 32 RESULT: HLA-B27 antigen was not detected. ADDITIONAL INFORMATION Method: Flow Cytometry Performing Laboratory CLIA# [id number] Test Performed by: [place] [address] 33 Test Performed by: [place] [address] 34 Test Performed by: [place] [address] 35 Negative for cANCA and pANCA patterns by immunofluorescence. ADDITIONAL INFORMATION This test was developed and its performance characteristics determined by [facility] in a manner consistent with CLIA requirements. This test has not been cleared or approved by the U.S. Food and Drug Administration. Test Performed by: [facility] - [address] [id number] 36 REFERENCE VALUE <20.0 (Negative) Test Performed by: [facility] - [address] [address] 37 ADDITIONAL INFORMATION This test was developed and its performance characteristics determined by [facility] in a manner consistent with CLIA requirements. This test has not been cleared or approved by the U.S. Food and Drug Administration. Test Performed by: [facility] - [address] [address] 38 Test Performed by: [facility] - [address] [address] 39 ANTIBODY NOT DETECTED REFERENCE RANGES: IgG <1:64 IgM <1:20 Elevated antibody levels to B. microti indicate exposure to the organism. Human babesiosis infection is transmitted by the bite of an infected Ixodes tick or less frequently from transfusion with blood from an infected donor. Definitive diagnosis is made by identifying intraerythrocytic organisms in peripheral blood. In patients with low parasitemia, antibody detection by IFA is recommended. IgG levels greater than or equal to 1:1024 can be detected in acute phase patients with parasites in blood smears. The IFA assay can be used as a seroepidemiologic tool to study the frequency and distribution of B. microti in endemic areas especially in persons with mixed infections also involving Borrelia burgdorferi. This test was developed and its analytical performance characteristics have been determined by [facility]. It has not been cleared or approved by the U.S. Food and Drug Administration. The FDA has determined that such clearance or approval is not necessary. This assay has been validated pursuant to the CLIA regulations and is used for clinical purposes. Test Performed by: [facility] [id number] [place] [address] 40 RESULT: :02,05 REFERENCE VALUE Not Applicable 41 RESULT: 03:01,05:01 DQ Serologic Equivalent: 7,5 REFERENCE VALUE Not Applicable 42 The absence of HLA celiac permissive genes would make the presence of celiac disease unlikely. ADDITIONAL INFORMATION Method: Molecular typing of HLA antigens performed using reverse SSOP and/or SSP methods, reported as serological equivalents and low to medium resolution molecular values. Performing Laboratory CLIA# [id number] Test Performed by: [address] [id number] 43 [id number] SEE RESULT BELOW Name: DEB TAM : [address]: Junior López MD Acct: [id number] Unit: [id number] AGE: 32 Location: [facility] Re07/01/17 SEX: F Status: REG REF SPEC: [id number] RADU: 07/01/17-[address] [facility] [address]: Junior López MD REQ: [id number] RECD: 07/01/17 STATUS: COMP _ SOURCE: THROAT SPDESC: ORDERED: Throat Culture COMMENTS: [id number] Verbal to MEGANAUGUSTO JORDANNAHOMI by [id number] at 1056 on 07/03/17. Results read back accurately. Procedure Result Reported Site Throat Culture Final 07/03/17- 1411 ML Organism 1 STREP GRP A BY BACITRACIN DISC Quantity 3+ Organism 2 NORMAL TINA Quantity 3+ * ML - MAIN LAB ([facility]) . END OF REPORT * ML=Testing performed at Main Lab DEPARTMENT OF PATHOLOGY, [address] [place] [address] Vern Brian M.D. Director [facility] # [id number] 45 Because ethnic data is not always readily available, this report includes an eGFR for both -Americans and non- Americans. The National Kidney Disease Education Program (NKDEP) does not endorse the use of the MDRD equation for patients that are not between the ages of 18 and 70, are , have extremes of body size, muscle mass, or nutritional status, or are non- or non-. According to the National Kidney Foundation, irrespective of diagnosis, the stage of the disease is based on the level of kidney function: Stage Description GFR(mL/min/1.73 m(2)) 1 Kidney damage with normal or decreased GFR 90 2 Kidney damage with mild decrease in GFR 60-89 3 Moderate decrease in GFR 30-59 4 Severe decrease in GFR 15-29 5 Kidney failure <15 (or dialysis) 46 SEE RESULT BELOW Name: YONATANDEB M : [address]: Carmen Watts MD Acct: [id number] Unit: [id number] AGE: 32 Location: LAB Re03/12/17 SEX: F Status: REG REF SPEC: [id number] RADU: 03/12/[address]: Carmen Watts MD REQ: [id number] RECD: 03/12/17 STATUS: YULIYA RIOS DR: Heriberto Yoo MD _ SOURCE: URINE SPDESC: ORDERED: Urine Culture QUERIES: Urine Source: Clean Catch Procedure Result Reported Site Urine Culture Final 03/13/17- 1700 ML No Growth (<1,000 CFU/mL) * ML - MAIN LAB ([facility]) . END OF REPORT * ML=Testing performed at Main Lab DEPARTMENT OF PATHOLOGY, [address] [place] [address] Vern Brian M.D. Director [facility] # [id number] Because ethnic data is not always readily available, this report includes an eGFR for both -Americans and non- Americans. The National Kidney Disease Education Program (NKDEP) does not endorse the use of the MDRD equation for patients that are not between the ages of 18 and 70, are , have extremes of body size, muscle mass, or nutritional status, or are non- or non-. According to the National Kidney Foundation, irrespective of diagnosis, the stage of the disease is based on the level of kidney function: Stage Description GFR(mL/min/1.73 m(2)) 1 Kidney damage with normal or decreased GFR 90 2 Kidney damage with mild decrease in GFR 60-89 3 Moderate decrease in GFR 30-59 4 Severe decrease in GFR 15-29 5 Kidney failure <15 (or dialysis) 48 REFERENCE VALUE <=1.0 (Negative) 49 REFERENCE VALUE <20.0 (Negative) 50 Tests for antibodies to dsDNA and JAVAN antigens are not performed automatically unless the JUANPABLO result is > or= 3.0 U. Studies performed at [facility] indicate that positive JUANPABLO results <3.0 U are rarely accompanied by positive second order tests. Test Performed by: [place] [address] Desulfurizer Operator: Jose R Trujillo II, M.D., Ph.D. 51 Acute inflammation: >10.00 52 Serologic response to B. burgdorferi infection is not detected, but cannot rule out early infection during which low or undetectable antibody levels to B. burgdorferi may be present. If clinically indicated, a new serum specimen should be submitted in 7-14 days. Test Performed by: [place] [address] Desulfurizer Operator: Jose R Trujillo II, M.D., Ph.D. 53 AM 8.7-22.4 PM <10 54 Serologic response to B. burgdorferi infection is not detected, but cannot rule out early infection during which low or undetectable antibody levels to B. burgdorferi may be present. If clinically indicated, a new serum specimen should be submitted in 7-14 days. Test Performed by: [place] [address] Desulfurizer Operator: Jose R Trujillo II, M.D., Ph.D. 55 Test Performed by: [address] [address] Desulfurizer Operator: Jose R Trujillo II, M.D., Ph.D. 56 Normal Range 180 to 914 Indeterminate Range 145 to 180 Deficient Range <145 57 Because ethnic data is not always readily available, this report includes an eGFR for both -Americans and non- Americans. The National Kidney Disease Education Program (NKDEP) does not endorse the use of the MDRD equation for patients that are not between the ages of 18 and 70, are , have extremes of body size, muscle mass, or nutritional status, or are non- or non-. According to the National Kidney Foundation, irrespective of diagnosis, the stage of the disease is based on the level of kidney function: Stage Description GFR(mL/min/1.73 m(2)) 1 Kidney damage with normal or decreased GFR 90 2 Kidney damage with mild decrease in GFR 60-89 3 Moderate decrease in GFR 30-59 4 Severe decrease in GFR 15-29 5 Kidney failure <15 (or dialysis) Procedures Date CPT Code Description Status 07/01/2017 Mammogram Completed Encounters Type Date Location Provider CPT E/M Dx Office Visit 01/11/2018 [facility] Delmar Staples, 41317 M50.222 3:30p Of Deborah Almonte Office Visit 12/01/2017 Rheumatology Services Junior López, 07298 M06.4 11:20a Of Deborah Almonte R16.0 R70.0 E53.8 Z79.1 M54.2 Office Visit 08/27/2017 11:20a [facility] Services Of Junior López 23052 M54.2 Deborah Almonte R70.0 E53.8 M79.1 Office Visit 07/16/2017 11:00a [facility] Kathy Watts, 73590 G43.009 Services Of Deborah Almonte Office Visit 07/14/2017 11:20a [facility] Services Junior López 70367 M54.2 Of Deborah Almonte R70.0 E53.8 M79.1 M54.5 Office Visit 07/09/2017 10:00a [facility], 55738 N64.4 Deborah [facility] Office Visit 07/01/2017 11:00a Rheumatology Services Junior López, 06006 M25.50 Of Stitch Bonder Machine Operator Helper M.D. R70.0 M54.2 J03.90 Office Visit 06/30/2017 10:00a [facility] [place] [address] [address] [facility] N64.4 E04.9 Office Visit 03/19/2017 11:00a [facility] Carmen Watts, 22960 R53.81 Services Of Deborah Greene.Shirley M79.7 Office Visit 11/25/2016 8:45a [facility] Carmen Watts, 44784 G43.019 Services Of Stitch Bonder Machine Operator Helper M.Joanne. M54.2 Office Visit 04/10/2016 10:00a [facility] Carmen GreeneChoco Brittneediana, [address]3340 G43.019 Services Of Deborah Greene.Shirley M54.2 M54.12 Office Visit 07/17/2015 1:40p [facility] Internal Medicine Bogdan Marquez M.D. [address] [address] - [address] 244.8 564.09 626.2 564.00 Office Visit 03/02/2015 10:20a [facility] Internal Medicine Bogdan Marquez M.D. [address]3551 780.[address] - [address] 346.90 Office Visit 02/12/2015 2:40p [facility] Internal Medicine Bogdan Marquez M.D. 93246 244.[address] - [address] 564.09 784.0 244.9 564.00 Office Visit 10/12/2012 9:00a [facility] Josselyn Plasencia, [address]4734 238.0 Of Roma Almonte Plan of Care Future Appointment(s):01/29/2018 11:30 am - Delmar Staples M.D. at [facility]01/26/2018 4:40 pm - Junior López M.D. at [facility]02/09/2018 9:00 am - Dayan Gottlieb MD at [facility]01/11/2018 - Delmar Staples M.D.M50.222 Other cervical disc displacement at C5-C6 levelNew Medication:Methylprednisolone 4 mgNew Therapy:Physical TherapyFollow up:3 weeks
[2018-01-27 18:14] VITALS: BP 121/76
--- NOTE | 2018-01-27 18:50 | ED ---
Throat Pain/Nasal Congestion - HPI Summary HPI Summary: 32F presents with sore throat for the past 3 days. She states she has history of strep. She admits to subjective fevers and chills. She admits to muscle aches. She admits to dry cough. She went to sinus congestion and ear pressure. She states she has pain with swallowing but is able to do so. She denies any chest pain or shortness breath. She denies any abdominal pain nausea or vomiting. She states she was seen by her primary sent here for a strep test. Her primary prescribe her steroid and antibiotic already. - History of Current Complaint Chief Complaint: UCGeneralIllness Time Seen by Provider: 01/27/18 18:22 - Allergies/Home Medications Allergies/Adverse Reactions: Allergies Allergy/AdvReac Type Severity Reaction Status Date / Time Adhesive Tape Allergy BURNED SKIN Verified 01/27/18 18:13 Home Medications: Home Medications Iron 18 mg PO DAILY 01/27/18 [History Confirmed 01/27/18] Nortriptyline CAP* [Nortriptylline CAP*] 30 mg PO DAILY 01/27/18 [History Confirmed 01/27/18] PMH/Surg Hx/FS Hx/Imm Hx Endocrine/Hematology History: Denies: Hx Diabetes, Hx Thyroid Disease Cardiovascular History: Denies: Hx Hypertension, Hx Pacemaker/ICD Respiratory History: Denies: Hx Asthma, Hx Chronic Obstructive Pulmonary Disease (COPD) GI History: Reports: Other GI Disorders - HX OF CONSTIPATION Denies: Hx Ulcer History: Denies: Hx Renal Disease Musculoskeletal History: Reports: Hx Rheumatoid Arthritis Sensory History: Denies: Hx Contacts or Glasses, Hx Hearing Aid Opthamlomology History: Denies: Hx Contacts or Glasses Neurological History: Reports: Hx Headaches Denies: Other Neuro Impairments/Disorders Psychiatric History: Reports: Hx Anxiety, Hx Panic Disorder - ANXIETY - Surgical History Surgery Procedure, Year, and Place: LUMPECTOMY LEFT BREAST 02/05/16 - BENIGN. LEEP 12/01 Infectious Disease History: No Infectious Disease History: Denies: Hx Hepatitis, Hx Human Immunodeficiency Virus (HIV), Traveled Outside the [place] in Last 30 Days - Family History Known Family History: Positive: None Negative: Cardiac Disease, Blood Disorder Family History: R & n/C - Social History Alcohol Use: Occasionally Alcohol Amount: 1 BOTTLE WINE/WEEK Hx Substance Use: No Substance Use Type: Reports: None Hx Tobacco Use: No Smoking Status (MU): Never Smoked Tobacco Review of Systems Negative: Fever Positive: Sore Throat Negative: Chest Pain Positive: Cough. Negative: Shortness Of Breath All Other Systems Reviewed And Are Negative: Yes Physical Exam Triage Information Reviewed: Yes Vital Signs On Initial Exam: Initial Vitals Temp Pulse Resp BP Pulse Ox 98.8 F 58 18 121/76 100 01/27/18 18:10 01/27/18 18:10 01/27/18 18:10 01/27/18 18:10 01/27/18 18:10 Vital Signs Reviewed: Yes Appearance: Positive: Well-Appearing Skin: Positive: Warm, Dry Head/Face: Positive: Normal Head/Face Inspection Eyes: Positive: Normal, EOMI, RONEN, Conjunctiva Clear ENT: Positive: Pharyngeal erythema, TMs normal, Uvula midline, Other - soft palate symmetric. Negative: Tonsillar swelling, Tonsillar exudate, Trismus, Muffled voice Neck: Positive: Supple, Nontender, No Lymphadenopathy Respiratory/Lung Sounds: Positive: Clear to Auscultation, Breath Sounds Present Cardiovascular: Positive: Normal, RRR Abdomen Description: Positive: Nontender, Soft Bowel Sounds: Positive: Present Musculoskeletal: Positive: Normal Neurological: Positive: Normal Psychiatric: Positive: Normal Diagnostics - Vital Signs Vital Signs Temp Pulse Resp BP Pulse Ox 01/27/18 18:10 98.8 F 58 18 121/76 100 - Laboratory Lab Results: Lab Results 01/27/18 Range/Units 18:24 Group A Strep Rapid Negative (Negative) Lab Statement: Any lab studies that have been ordered have been reviewed, and results considered in the medical decision making process. EENT Course/Dx - Course Course Of Treatment: 32F presents with sore throat for the past 3 days. She states she has history of strep. She admits to subjective fevers and chills. She admits to muscle aches. She admits to dry cough. She went to sinus congestion and ear pressure. She states she has pain with swallowing but is able to do so. She denies any chest pain or shortness breath. She denies any abdominal pain nausea or vomiting. She states she was seen by her primary sent here for a strep test. Her primary prescribe her steroid and antibiotic already. On exam pharynx erythematous. Uvula midline. Soft palate symmetric. Lungs clear to auscultation. Strep negative. Flu negative. We'll add on Magic mouthwash for pain. Patient understands and agrees with plan. - Differential Diagnoses Differential Diagnoses: Pharyngitis, Tonsilitis, URI/Bronchitis, Other - influenza - Diagnoses Provider Diagnoses: Pharyngitis Discharge - Discharge Plan Condition: Good Disposition: HOME Patient Education Materials: Pharyngitis (ED) Referrals: Heriberto Yoo MD [Primary Care Provider] - Additional Instructions: Magic mouthwash 5ml swish and spit can use 4x a day Take Tylenol or ibuprofen for pain every 6 hours Use saline spray in nose as much as needed for nasal congestion Can gargle salt water Can use cough drops or products such as cloraseptic spray follow up with primary if no improvement in a week Return to ED if develop any new or worsening symptoms
== END 2018-01-27 19:43 | disposition home or self-care (01) ==
LOC: UCEAST 18:04
DX: J02.9 Acute pharyngitis, unspecified (principal)
CPT/HCPCS: 87502; 87651; 99212; G0463

== ENCOUNTER 2020-01-09 07:46 | Day surgery (SDC) | payer OTHER ==
[2020-01-09] MEDS ORDERED: ceFAZolin 2 GM in NS PREMIX(*) 2 GM/100 ML BAG IVPB ONE (08:27)
[2020-01-09] MEDS ORDERED: Metoclopramide IV* 5 MG/ML 2 ML VIAL ONE (08:37)
[2020-01-09] MEDS ORDERED: Buffered Lidocaine 1% SYRIN* 1 ML/SYRINGE INTRADERM ONE (08:44)
[2020-01-09] MEDS ORDERED: Midazolam* 1 MG/ML 2 ML VIAL (2 MG) ONE (09:28)
[2020-01-09] MEDS ORDERED: fentaNYL* 50 MCG/ML 2 ML VIAL (100 MCG VIAL) ONE (09:28)
[2020-01-09] MEDS ORDERED: Scopolamine 1.5 mg* PATCH ONE (11:21)
[2020-01-09] MEDS ORDERED: Bupivacaine 0.25% SDV PF* 10 ML VIAL INJ ONE (11:39)
[2020-01-09] MEDS ORDERED: Ondansetron INJ* 2 MG/ML VIAL ONE (11:51)
[2020-01-09] MEDS ORDERED: Lidocaine 2% PF * 5 ML VIAL ONE (11:51)
[2020-01-09] MEDS ORDERED: Dexamethasone IV* 4 MG/ML 1 ML (4 MG) ONE (11:51)
[2020-01-09] MEDS ORDERED: Propofol* 10 MG/ML 20 ML BTL ONE (11:51)
[2020-01-09] MEDS ORDERED: Ketorolac INJ* 30 MG/ML 1 ML VIAL ONE (11:51)
[2020-01-09] MEDS ORDERED: Phenylephrine 40 MCG/ML SYRINGE ONE (12:12)
[2020-01-09] MEDS ORDERED: Scopolamine 1.5 mg* PATCH TRANSDERM PRN (12:36)
[2020-01-09] MEDS ORDERED: Acetaminophen TAB* 325 MG PO PRN (12:36)
[2020-01-09] MEDS ORDERED: Naloxone* 0.4 MG/ML 1 ML VIAL IV PRN ×2 (12:36→12:37)
[2020-01-09] MEDS ORDERED: HYDROmorphone INJ1* 1 MG/ML SYRINGE IV PRN (12:37)
[2020-01-09] MEDS ORDERED: PROCHLORPERAZINE INJ 5 MG/ML 2 ML VIAL IV PRN (12:37)
[2020-01-09] MEDS ORDERED: HYDROmorphone INJ1* 1 MG/ML SYRINGE ONE (12:38)
[2020-01-09] MEDS: HYDROmorphone INJ1* 1 MG/ML SYRINGE IV PRN ×5 (12:43→13:23)
[2020-01-09] MEDS ORDERED: Acetaminophen TAB* 325 MG ONE (12:56)
[2020-01-09] MEDS ORDERED: oxyCODONE TAB* 5 MG TAB ONE (13:25)
[2020-01-09 14:53] VITALS: BP 113/66
--- NOTE | 2020-01-09 23:29 | OP ---
DATE OF OPERATION: 01/09/20 - [facility] DATE OF : 89 ATTENDING SURGEON: Pieter Bunch MD LINEN SUPERVISOR: Black Ybarra PA-C PRE-OP DIAGNOSES: Right ankle instability, previous lateral ligament tear. POST-OP DIAGNOSES: Right ankle instability, previous lateral ligament tear. OPERATIVE PROCEDURE: Anterior lateral ligament repair, right ankle. DESCRIPTION OF PROCEDURE: The patient was taken to the operating room where a longitudinal incision was made over the distal fibula. We raised an extracapsular flap anteriorly and distally. The anterior and distal capsules reflected directly off the distal fibula. We reflected periosteum posteriorly and used a small rongeur to roughen the edge of the fibula. Through-bone sutures using a 0.062 C-wire were created with #1 Vicryl bringing the anterior capsule back permanently to the fibula with a Scott-Bereket suture and then the more posterior portion of the capsule, which is at 6 o'clock was brought up firmly to the distal tip of the fibula, similar suture. We then sewed down the redundant capsule to the repair as well with 2-0 Vicryl sutures. We irrigated thoroughly, closing with Monocryl and subcuticular and a compression dressing, plaster splint. [id number]/[facility] #: [id number] [facility] CENTERJoanne
== END 2020-01-09 14:45 | disposition home or self-care (01) ==
LOC: OR 07:46
PROVIDERS: ATTEND Orthopaedic Surgery
DX: S93.491A Sprain of other ligament of right ankle, initial encounter (principal); M25.371 Other instability, right ankle; E03.9 Hypothyroidism, unspecified; F90.9 Attention-deficit hyperactivity disorder, unspecified type; X58.XXXA Exposure to other specified factors, initial encounter; Y92.9 Unspecified place or not applicable
CPT/HCPCS: 81025; A9270-GY; C1776; J0690; J1100; J1170; J1885; J2250; J2405; J2704; J2765; J3010; J3490

== ENCOUNTER 2021-09-29 04:56 | Inpatient (IN) ==
[2021-09-29] MEDS ORDERED: Penicillin G Potassium IV 5,000,000 UNITS in NS 0.9% 100 ml BAG 100 ML IVPB ONE (05:28)
[2021-09-29] MEDS ORDERED: Lactated Ringers 1000 ml BAG 1,000 ML IV ONE (05:28)
[2021-09-29] MEDS ORDERED: Penicillin G Potassium IV 3,000,000 UNITS in NS 0.9% 100 ml BAG 100 ML IVPB SCH (06:00)
[2021-09-29 06:05] LABS: Urine Benzodiazepine Screen None Detected (None Detect); Urine Cannabinoids Screen None Detected (None Detect); Urine Opiates Screen None Detected (None Detect)
[2021-09-29 06:16] LABS: ABS Eosinophils 0.1 10^3/ul (0-0.6); ABS Lymphocytes 1.8 10^3/ul (1.0-4.8); ABS Monocytes 0.5 10^3/ul (0-0.8); ABS Neutrophils 6.3 10^3/ul (1.5-7.7); Eosinophil % 0.9 %; Hematocrit 37 % (35-47); Hemoglobin 12.8 g/dL (12.0-16.0); Lymphocyte % 20.9 %; Mean Corpuscular HGB Conc 35 g/dL (31-36); Mean Corpuscular Hemoglobin 32 pg (27-31); Mean Corpuscular Volume 92 fL (80-97); Mean Platelet Volume 9.8 fL (7.4-10.4); Nucleated Red Blood Cells % 0.1; Platelet Count 171 10^3/uL (150-450); Red Cell Distribution Width 13 % (10-15); White Blood Count 8.8 10^3/uL (3.5-10.8)
[2021-09-29 06:20] LABS: Urine Appearance Cloudy; Urine Bilirubin Negative (Negative); Urine Blood 3+ (Negative); Urine Color Yellow; Urine Glucose Negative (Negative); Urine Ketones Negative (Negative); Urine Nitrite Negative (Negative); Urine Protein 2+(100 mg/dL) (Negative); Urine Specific Gravity 1.004 (1.002-1.030); Urine Urobilinogen Negative (Negative)
[2021-09-29] MEDS ORDERED: Ampicillin ADVAN 2 GM in NS 0.9% 100 ml BAG 100 ML IVPB SCH (06:30)
[2021-09-29 06:39] LABS: Urine Bacteria Absent (Absent); Urine Red Blood Cell 3+(>10/hpf) (Absent); Urine Squamous Epithelial Cell Present (Absent); Urine White Blood Cell 2+(11-20/hpf) (Absent)
[2021-09-29] MEDS ORDERED: Oxytocin in LR 20 UNITS/1,000 ML BAG IVPB ONE (07:14)
[2021-09-29] MEDS ORDERED: Oxytocin in LR 20 UNITS/1,000 ML BAG IVPB SCH (08:00)
[2021-09-29] MEDS ORDERED: Dibucaine 1% OINT 28.35 GM TUBE ONE (08:20)
[2021-09-29] MEDS ORDERED: Witch Hazel PAD JAR ONE (08:20)
[2021-09-29] MEDS ORDERED: Witch Hazel PAD JAR TOPICAL PRN (08:28)
[2021-09-29] MEDS ORDERED: Dibucaine 1% OINT 28.35 GM TUBE PR PRN (08:28)
[2021-09-29] MEDS ORDERED: Lactated Ringers 1000 ml BAG 1,000 ML IV SCH (09:00)
[2021-09-29] MEDS ORDERED: Lidocaine 1% VIAL 10 MG/ML VIAL ONE (09:56)
[2021-09-30 06:15] LABS: ABS Basophils 0.1 10^3/ul (0-0.2); ABS Eosinophils 0.1 10^3/ul (0-0.6); ABS Lymphocytes 2.3 10^3/ul (1.0-4.8); ABS Monocytes 0.4 10^3/ul (0-0.8); ABS Neutrophils 8.6 10^3/ul (1.5-7.7); Hematocrit 33 % (35-47); Hemoglobin 11.1 g/dL (12.0-16.0); Lymphocyte % 20.1 %; Mean Corpuscular HGB Conc 34 g/dL (31-36); Mean Corpuscular Hemoglobin 31 pg (27-31); Mean Corpuscular Volume 93 fL (80-97); Mean Platelet Volume 9.7 fL (7.4-10.4); Platelet Count 167 10^3/uL (150-450); Red Blood Count 3.52 10^6 /uL (3.70-4.87); Red Cell Distribution Width 13 % (10-15); White Blood Count 11.5 10^3/uL (3.5-10.8)
[2021-10-01 09:37] VITALS: BP 115/68
== END 2021-10-01 18:45 | disposition home or self-care (01) | DRG 560 ==
LOC: MCHOBOUT 04:56 → MCHOB 05:44
PROVIDERS: ADMIT Midwife; ATTEND Midwife

== ENCOUNTER 2024-08-05 11:21 | Inpatient (IN) ==
[2024-08-05] MEDS ORDERED: Lidocaine 1% VIAL 10 MG/ML 30 ML VIAL INJ PRN (12:04)
[2024-08-05 14:31] LABS: Urine Benzodiazepine Screen None Detected (None Detect); Urine Cannabinoids Screen None Detected (None Detect); Urine Opiates Screen None Detected (None Detect)
[2024-08-05] MEDS: Oxytocin 10 UNITS/ML 1 ML VIAL IM ONE (16:44)
[2024-08-05] MEDS ORDERED: Polyethylene Glycol 3350 17 GM PACKET PO PRN (16:57)
[2024-08-05] MEDS: Witch Hazel PAD JAR TOPICAL PRN (17:32)
[2024-08-05] MEDS: Dibucaine 1% OINT 28.35 GM TUBE PR PRN (17:32)
[2024-08-05] MEDS: Lactated Ringers 1000 ml BAG 1,000 ML IV ONE (19:55)
[2024-08-06 08:10] LABS: ABS Basophils 0.1 10^3/uL (0.0-0.1); ABS Eosinophils 0.1 10^3/uL (0.0-0.5); ABS Lymphocytes 1.9 10^3/uL (1.0-4.8); ABS Monocytes 0.6 10^3/uL (0.0-0.9); ABS Neutrophils 9.2 10^3/uL (1.5-7.6); Eosinophil % 0.7 %; Hematocrit 35.2 % (35-45); Hemoglobin 12.2 g/dL (11.5-14.3); Lymphocyte % 15.7 %; Mean Corpuscular Hemoglobin 32.6 pg (27-33); Mean Corpuscular Hgb Conc 34.7 g/dL (31-36); Mean Corpuscular Volume 93.8 fL (80-97); Platelet Count 156 10^3/uL (150-450); Red Blood Count 3.76 10^6/uL (3.63-4.92); White Blood Count 11.8 10^3/uL (3.8-11.8)
[2024-08-07 08:25] VITALS: BP 127/76
== END 2024-08-07 15:45 | disposition home or self-care (01) | DRG 560 ==
LOC: MCHOBOUT 11:21 → MCHOB 12:36
PROVIDERS: ADMIT Midwife; ATTEND Midwife